=== PATIENT | female | born 1950 | race Caucasian/White ===

== ENCOUNTER → 2023-12-17 13:30 | Outpatient (REF) | payer MEDICARE, OTHER, SELFPAY ==
[2023-12-17 18:13] LABS: Urine Albumin Trace (Neg - Trace); Urine Bilirubin 1+ (Negative); Urine Character Slightly Cloudy (Clear); Urine Color Yellow; Urine Glucose Negative (Negative); Urine Ketone Trace (Negative); Urine Leukocyte 2+ (Negative); Urine Nitrite Positive (Negative); Urine Occult Blood 1+ (Negative); Urine Urobilinogen Negative (Neg - 1+)
[2023-12-17 18:19] LABS: Urine Squamous Cell 26-30 /LPF (Few)
[2023-12-17 18:20] LABS: Urine White Cell 70-80 /HPF (0-5)
[2023-12-17 18:21] LABS: Urine Bacteria Many (Negative)
== END ==
LOC: OLABN 13:30
PROVIDERS: ATTENDING PHYSICIAN Student in an Organized Health Care Education/Training Program
DX: R30.9 Painful micturition, unspecified (principal)
CPT/HCPCS: 81003; 81015; 87086

== ENCOUNTER → 2023-12-20 09:42 | Outpatient (REF) | payer MEDICARE, OTHER, SELFPAY ==
[2023-12-20 10:27] LABS: Urine Albumin Trace (Neg - Trace); Urine Bilirubin Negative (Negative); Urine Character Very Cloudy (Clear); Urine Color Yellow; Urine Glucose Negative (Negative); Urine Ketone Negative (Negative); Urine Leukocyte 2+ (Negative); Urine Nitrite Positive (Negative); Urine Occult Blood 2+ (Negative); Urine Urobilinogen Negative (Neg - 1+)
[2023-12-20 10:34] LABS: Urine Squamous Cell >30 /LPF (Few)
[2023-12-20 10:35] LABS: Urine Bacteria Many (Negative); Urine White Cell 16-20 /HPF (0-5)
== END ==
LOC: OLABN 09:42
PROVIDERS: ATTENDING PHYSICIAN Student in an Organized Health Care Education/Training Program
DX: R30.9 Painful micturition, unspecified (principal)
CPT/HCPCS: 81003; 81015; 87077; 87086; 87186

== ENCOUNTER → 2024-10-16 09:51 | Outpatient (REF) | payer MEDICARE, OTHER, SELFPAY ==
[2024-10-16 10:37] LABS: HDL Cholesterol 32 mg/dl; LDL Cholesterol, Calculated 37 mg/dl; Total Cholesterol 78 mg/dl (50-199); Triglyceride 48 mg/dl (10-149); Very Low Density Lipoprotein 9 mg/dl (0-30)
== END ==
LOC: OLABN 09:51
PROVIDERS: ATTENDING PHYSICIAN Student in an Organized Health Care Education/Training Program
DX: I61.0 Nontraumatic intracerebral hemorrhage in hemisphere, subcortical (principal)
CPT/HCPCS: 36415; 80061

== ENCOUNTER → 2025-03-28 09:46 | Outpatient (REF) | payer OTHER, SELFPAY ==
[2025-03-28 10:25] LABS: Hematocrit 29.5 % (37.0-47.0); Hemoglobin 9.6 g/dL (12.0-16.0); Mean Corp Hgb Conc. 32.5 g/dL (33.0-37.0); Mean Corpuscular Hgb 31.5 pg (27.0-31.0); Mean Corpuscular Volume 96.7 fL (81.0-99.0); Mean Platelet Volume 11.8 fL (7.4-10.4); Platelet Count 201 10^3/uL (130-400); Red Blood Cell Count 3.05 10^6/uL (4.20-5.40); Red Cell Dist. Width 12.6 % (11.5-14.5); White Blood Cell Count 7.5 10^3/uL (4.8-10.8)
[2025-03-28 11:00] LABS: Blood Urea Nitrogen 21 mg/dl (7-17); Calcium 8.8 mg/dl (8.4-10.2); Carbon Dioxide 24 mmol/L (22-30); Chloride 111 mmol/L (98-107); Glucose 92 mg/dl (70-99); HDL Cholesterol 31 mg/dl; LDL Cholesterol, Calculated 34 mg/dl; Sodium 143 mmol/L (135-145); Total Cholesterol 74 mg/dl (50-199); Triglyceride 48 mg/dl (10-149); Very Low Density Lipoprotein 9 mg/dl (0-30); eGFR > 60.00
[2025-03-28 11:10] LABS: Vitamin D, 25-OH*** 60.4 ng/mL (30-80)
[2025-03-28 11:49] LABS: Glycohemoglobin (HgbA1c) 5.7 % (4.0-5.6)
== END ==
LOC: OLABN 09:46
PROVIDERS: ATTENDING PHYSICIAN Student in an Organized Health Care Education/Training Program
DX: I61.9 Nontraumatic intracerebral hemorrhage, unspecified (principal)
CPT/HCPCS: 36415; 80048; 80061; 82306; 83036; 85027